=== PATIENT | male | born 1930 | race Caucasian/White ===

== ENCOUNTER 2016-09-29 13:10 | Outpatient (CLI) | payer MEDICARE, OTHER ==
[2016-09-29 14:16] LABS: Anion Gap 14 mmol/L (10-20); BUN (Urea Nitrogen) 14 mg/dL (8.4-25.7); Bilirubin, Direct 0.2 mg/dL (0.1-0.3); Calc. Creatinine Clearance 0 mL/min (70-130); Calcium 8.4 mg/dL (7.8-10.44); Carbon Dioxide 24 mmol/L (23-31); Cardiac Risk 3.9 (Less than 4.5); Chloride 107 mmol/L (98-107); Cholesterol 160 mg/dl (< 200 Desired); Estimated GFR-MDRD 67; Glucose 102 mg/dL (83-110); HDL Cholesterol 41 mg/dL (>60 Neg Risk); LDL Cholesterol, Calculated 104 mg/dL; Potassium 3.5 mmol/L (3.5-5.1); Sodium 141 mmol/L (136-145); Triglycerides 74 mg/dL (Less than 150)
[2016-09-29 14:50] LABS: ALT (SGPT) 9 U/L (8-55); AST (SGOT) 12 U/L (5-34); Albumin 3.7 g/dL (3.4-4.8); Alkaline Phosphatase 56 U/L (40-150); Bilirubin, Total 0.4 mg/dL (0.2-1.2); Globulin 2.5 g/dL (2.4-3.5); Protein, Total 6.2 g/dL (5.8-8.1)
[2016-09-29 15:26] LABS: Follow-up Chemistry Comp? YES; Follow-up Result - Chemistry REPORT FAXED
== END 2016-09-29 13:11 | disposition home or self-care (01) ==
LOC: NAVSJIPCSP 13:10
PROVIDERS: ATTEND Nurse Practitioner Family
DX: I25.10 Atherosclerotic heart disease of native coronary artery without angina pectoris (principal); I50.22 Chronic systolic (congestive) heart failure
CPT/HCPCS: 36415; 80053; 80061; 82248